=== PATIENT | female | born 1975 | race Caucasian/White ===

== ENCOUNTER 2016-11-14 07:16 | Observation (INO) | payer BC ==
[~2016-11-14] VITALS: Ht 165.1 cm; Wt 73.2 kg
[2016-11-14 07:21] VITALS: BP 131/87; PULSE 82; TEMP 98; O2SAT 98
--- NOTE | 2016-11-14 07:38 | PD ---
HPI Chief Complaint: Staff Nuclear Medicine Technologist Problem/Complaint Time Seen by Provider: 07:36 Travel History International Travel<30 days: No Contact w/Intl Traveler<30days: No Traveled to known affect area: No History of Present Illness HPI Patient is a 40-year-old female who arrives as a transfer from [facility]. The practitioners there Ulises GRAVES and Milotn Ha MD and transfer this patient for Dr. Jaycee Owusu. According to documentation the providers at [facility] had concerns of the patient was having intermittent torsion had a CAT scan performed there which showed "a large superior medially displaced and mildly edematous right ovary with large right ovarian cystic mass in with a small amount of free fluid in the pelvis. Findings are concerning for the possibility of ovarian torsion secondary to a large hemorrhagic cyst. DIRECTOR DRUG SAFETY consultation is recommended. Consider a follow-up pelvic ultrasound to further evaluate. Normal appendix."-- Dr Shemar Graham Currently the patient feels well she denies any abdominal pain. She states it was initially in the right lower quadrant and quite severe in nature. The patient is followed by Dr. Owusu who accepted the patient for transfer. Patient denies chest pain shortness of breath vaginal bleeding vaginal discharge lost fluid. Patient's pain apparently started approximate 12 hours ago and was intermittent in nature. Now currently resolved. PFSH Past Medical History Influenza Vaccination: No ?: Not Social History Alcohol Use: Yes (SOCIALLY) Tobacco Use: No Substance Use: No Allergies-Medications (Allergen,Severity, Reaction): Coded Allergies: No Known Allergies (Unverified , 11/14/16) Reported Meds & Prescriptions Reported Meds & Active Scripts Active Reported Aleve (Naproxen Sodium) 220 Mg Tab 440 Mg PO BID PRN Review of Systems Except as stated in HPI: all other systems reviewed are Neg Physical Exam Narrative GENERAL: Well-developed well-nourished in no apparent distress SKIN: Focused skin assessment warm/dry. HEAD: Atraumatic. Normocephalic. EYES: Pupils equal and round. No scleral icterus. No injection or drainage. ENT: No nasal bleeding or discharge. Mucous membranes pink and moist. NECK: Trachea midline. No JVD. CARDIOVASCULAR: Regular rate and rhythm. No murmur appreciated. RESPIRATORY: No accessory muscle use. Clear to auscultation. Breath sounds equal bilaterally. GASTROINTESTINAL: Abdomen soft, non-tender, nondistended. Hepatic and splenic margins not palpable. MUSCULOSKELETAL: No obvious deformities. No clubbing. No cyanosis. No edema. NEUROLOGICAL: Awake and alert. No obvious cranial nerve deficits. Motor grossly within normal limits. Normal speech. PSYCHIATRIC: Appropriate mood and affect; insight and judgment normal. Data Data Last Documented VS Vital Signs Date Time Temp Pulse Resp B/P Pulse Ox O2 Delivery O2 Flow Rate FiO2 11/14/16 07:21 98.0 82 131/87 98 Orders Basic Metabolic Panel (Bmp) (11/14/16 07:37) Complete Blood Count With Diff (11/14/16 07:37) Iv Access Insert/Monitor (11/14/16 07:37) Ecg Monitoring (11/14/16 07:37) Oximetry (11/14/16 07:37) Type And Screen (11/14/16 07:37) Act Partial Throm Time (Ptt) (11/14/16 07:37) Prothrombin Time / Inr (Pt) (11/14/16 07:37) NPO (11/14/16 07:37) Admit Order (Ed Use Only) (11/14/16 ) Labs Laboratory Tests Test 11/14/16 07:35 White Blood Count 7.1 TH/MM3 Red Blood Count 4.56 MIL/MM3 Hemoglobin 12.8 GM/DL Hematocrit 37.6 % Mean Corpuscular Volume 82.5 FL Mean Corpuscular Hemoglobin 28.1 PG Mean Corpuscular Hemoglobin 34.1 % Concent Red Cell Distribution Width 14.2 % Platelet Count 188 TH/MM3 Mean Platelet Volume 8.9 FL Neutrophils (%) (Auto) 64.5 % Lymphocytes (%) (Auto) 25.8 % Monocytes (%) (Auto) 7.9 % Eosinophils (%) (Auto) 0.8 % Basophils (%) (Auto) 1.0 % Neutrophils # (Auto) 4.6 TH/MM3 Lymphocytes # (Auto) 1.8 TH/MM3 Monocytes # (Auto) 0.6 TH/MM3 Eosinophils # (Auto) 0.1 TH/MM3 Basophils # (Auto) 0.1 TH/MM3 CBC Comment DIFF FINAL Differential Comment Prothrombin Time 10.8 SEC Prothromb Time International 1.0 RATIO Ratio Activated Partial 26.6 SEC Thromboplast Time Sodium Level 141 MEQ/L Potassium Level 3.9 MEQ/L Chloride Level 109 MEQ/L Carbon Dioxide Level 25.0 MEQ/L Anion Gap 7 MEQ/L Blood Urea Nitrogen 7 MG/DL Creatinine 0.72 MG/DL Estimat Glomerular Filtration 90 ML/MIN Rate Random Glucose 97 MG/DL Calcium Level 8.1 MG/DL Blood Type O POSITIVE Antibody Screen NEGATIVE Blood Bank Comment MDM Medical Decision Making Medical Screen Exam Complete: Yes Emergency Medical Condition: Yes Interpretation(s) EKG shows normal sinus rhythm normal axis and normal R-wave progression. No concerning ST-T changes. Intervals within normal limits. This normal EKG. Differential Diagnosis Intermittent ovarian torsion, ovarian cyst, ovarian mass, appendicitis is been excluded by CT at outside facility. Narrative Course Patient arrives [facility] transport. She is comfortable currently. Review the records from the outside facility and discussed with Dr. Owusu, she is in route to check on the patient. She may take to the operating room later this morning. Preoperative labs have been ordered. We discussed the possibility of an ultrasound and she will differential after her physical exam at this time. The patient remained stable in the emergency department. After exam by Dr. Owusu, plan is for OR this afternoon. Patient to be admitted to her service. Diagnosis Primary Impression: RLQ abdominal pain Admitting Information Admitting Physician Requests: Admit Condition: Stable Cas Soares MD November 14, 2016 07:38
[2016-11-14 07:52] LABS: AUTOMATED NEUTROPHIL # 4.6 TH/MM3 (1.8-7.7); BASOPHIL # 0.1 TH/MM3 (0-0.2); EOSINOPHIL # 0.1 TH/MM3 (0-0.4); EOSINOPHIL % 0.8 % (0.0-4.0); HEMATOCRIT 37.6 % (35.0-46.0); HEMO FLAGS DIFF FINAL; LYMPH % 25.8 % (9.0-44.0); LYMPHOCYTE # 1.8 TH/MM3 (1.0-4.8); MEAN CELL VOLUME 82.5 FL (80.0-100.0); MEAN CORPUSCULAR HEMOGLOBIN 28.1 PG (27.0-34.0); MEAN CORPUSCULAR HGB CONC 34.1 % (32.0-36.0); MONO % 7.9 % (0.0-8.0); NEUT % 64.5 % (16.0-70.0); PLATELET COUNT 188 TH/MM3 (150-450); RED BLOOD COUNT 4.56 MIL/MM3 (4.00-5.30); RED CELL DISTRIBUTION WIDTH 14.2 % (11.6-17.2); WHITE BLOOD COUNT 7.1 TH/MM3 (4.0-11.0)
[2016-11-14 08:01] LABS: APTT (PATIENT) 26.6 SEC (24.3-30.1); PROTHROMBIN TIME - PATIENT 10.8 SEC (9.8-11.6)
[2016-11-14 08:18] LABS: POTASSIUM 3.9 MEQ/L (3.5-5.1)
--- NOTE | 2016-11-14 09:13 | HHI.HP ---
HPI Chief Complaint intermittent and severe RLQT transfer from [facility] with imaging that is consistent with 10cm torsion of right ovary (intermittent) stable at moment Date Seen: November 14, 2016 Time Seen: 09:09 Travel History International Travel<30 Days: No Contact w/Intl Traveler<30Days: No Known Affected Area: No History of Present Illness HPI 40 yo mwf P2 with regular short menses and IUD in place to [facility] last night with 10/10 RLQT. Imaging consistent with torsion. Pain resolved spontaneously prior to transfer likely due to intermittent relaxation of torsion. Currently mildly painful. No fever, chills. Para: 2 History Past Medical History Medical History: Denies Significant Hx Obstetric History Obstetric History 2SVDs Family History Family History: Negative Social History Alcohol Use: No Tobacco Use: No Substance Abuse: No Allergies-Medications (Allergen,Severity, Reaction): Coded Allergies: No Known Allergies (Unverified , 11/14/16) Review of Systems Gastrointestinal: Nausea, Abdominal Pain Genitourinary: Pelvic Pain Physical Exam Vital Signs Date Time Temp Pulse Resp B/P Pulse Ox O2 Delivery O2 Flow Rate FiO2 11/14/16 07:21 98.0 82 131/87 98 Narrative GENERAL: Well-nourished, well-developed patient. SKIN: Warm and dry. HEAD: Normocephalic and atraumatic. EYES: No scleral icterus. No injection or drainage. ENT: No nasal drainage noted. Mucous membranes pink. Airway patent. NECK: Supple, trachea midline. No JVD. CARDIOVASCULAR: Regular rate and rhythm without murmurs, gallops, or rubs. RESPIRATORY: Breath sounds equal bilaterally. No accessory muscle use. BREASTS: Bilateral exam showed no masses , no retractions, no nipple discharge. ABDOMEN/GI: Abdomen soft, EXTREMITIES: No cyanosis or edema. BACK: Nontender without obvious deformity. No CVA tenderness. NEUROLOGICAL: Awake and alert. Motor and sensory grossly within normal limits. Five out of 5 muscle strength in all muscle groups. Normal speech. Data Data Orders Basic Metabolic Panel (Bmp) (11/14/16 07:37) Complete Blood Count With Diff (11/14/16 07:37) Iv Access Insert/Monitor (11/14/16 07:37) Ecg Monitoring (11/14/16 07:37) Oximetry (11/14/16 07:37) Type And Screen (11/14/16 07:37) Act Partial Throm Time (Ptt) (11/14/16 07:37) Prothrombin Time / Inr (Pt) (11/14/16 07:37) NPO (11/14/16 07:37) Admit Order (Ed Use Only) (11/14/16 ) Labs Laboratory Tests Test 11/14/16 07:35 White Blood Count 7.1 Red Blood Count 4.56 Hemoglobin 12.8 Hematocrit 37.6 Mean Corpuscular Volume 82.5 Mean Corpuscular Hemoglobin 28.1 Mean Corpuscular Hemoglobin 34.1 Concent Red Cell Distribution Width 14.2 Platelet Count 188 Mean Platelet Volume 8.9 Neutrophils (%) (Auto) 64.5 Lymphocytes (%) (Auto) 25.8 Monocytes (%) (Auto) 7.9 Eosinophils (%) (Auto) 0.8 Basophils (%) (Auto) 1.0 Neutrophils # (Auto) 4.6 Lymphocytes # (Auto) 1.8 Monocytes # (Auto) 0.6 Eosinophils # (Auto) 0.1 Basophils # (Auto) 0.1 CBC Comment DIFF FINAL Differential Comment Prothrombin Time 10.8 Prothromb Time International 1.0 Ratio Activated Partial 26.6 Thromboplast Time Sodium Level 141 Potassium Level 3.9 Chloride Level 109 Carbon Dioxide Level 25.0 Anion Gap 7 Blood Urea Nitrogen 7 Creatinine 0.72 Estimat Glomerular Filtration 90 Rate Random Glucose 97 Calcium Level 8.1 Blood Type O POSITIVE Antibody Screen NEGATIVE Blood Bank Comment Assessment/Plan Assessment and Plan intermittent torsion of large 10cm right adnexa needs diagnostic scope with possible RSO counseled in detail on surgical schedule Rohini Owusu MD November 14, 2016 09:12
[2016-11-14 10:29] VITALS: BP 114/62; O2SAT 99
[2016-11-14] MEDS ORDERED: LACTATED RINGER'S 1000 ML INJ 1,000 ML IV ONE ×2 (12:29→12:57)
[2016-11-14] MEDS ORDERED: ePHEDrine/NS 25 MG/5 ML SYR IV ONE (12:56)
[2016-11-14] MEDS ORDERED: PROPOFOL 200 MG/20 ML AMP IV ONE (12:56)
[2016-11-14] MEDS ORDERED: ONDANSETRON HCL 4 MG/2 ML VIAL IV PUSH ONE (12:57)
[2016-11-14] MEDS ORDERED: PHENYLEPH/NS 1000 MCG/10 ML SYR IV ONE (12:57)
[2016-11-14] MEDS ORDERED: NEOSTIGMINE 3 MG/3 ML SYR IV ONE (12:57)
[2016-11-14] MEDS ORDERED: NAPR220T95 PO (13:24)
[2016-11-14 13:44] LABS: AUTOMATED NEUTROPHIL # 3.1 TH/MM3 (1.8-7.7); BASOPHIL % 0.8 % (0.0-2.0); EOSINOPHIL # 0.1 TH/MM3 (0-0.4); EOSINOPHIL % 1.1 % (0.0-4.0); HEMATOCRIT 34.7 % (35.0-46.0); HEMO FLAGS DIFF FINAL; LYMPH % 28.1 % (9.0-44.0); LYMPHOCYTE # 1.3 TH/MM3 (1.0-4.8); MEAN CELL VOLUME 83.5 FL (80.0-100.0); MEAN CORPUSCULAR HEMOGLOBIN 26.8 PG (27.0-34.0); MEAN CORPUSCULAR HGB CONC 32.1 % (32.0-36.0); MONO % 5.2 % (0.0-8.0); NEUT % 64.8 % (16.0-70.0); PLATELET COUNT 168 TH/MM3 (150-450); RED BLOOD COUNT 4.15 MIL/MM3 (4.00-5.30); RED CELL DISTRIBUTION WIDTH 14.8 % (11.6-17.2); WHITE BLOOD COUNT 4.8 TH/MM3 (4.0-11.0)
[2016-11-14] MEDS ORDERED: CITRIC ACID-SODIUM CITRATE LIQ 30 ML UDC PO SCH (14:00)
[2016-11-14 14:12] VITALS: BP 120/68
[2016-11-14 14:12] LABS: BLOOD, URINE NEG (NEG); COMMENT (UR) CULT NOT INDICATED; CULTURE IF INDICATED CULT NOT INDICATED; GLUCOSE,URINE NEG (NEG); KETONE, URINE NEG (NEG); NITRITE,URINE NEG (NEG); SQUAMOUS EPITHELIAL CELL URINE 2 /hpf (0-5); URINE COLOR LIGHT-YELLOW (YELLW/STRAW)
[2016-11-14] MEDS ORDERED: MIDAZOLAM HCL 2 MG/2 ML VIAL ONE (14:36)
[2016-11-14] MEDS ORDERED: fentaNYL CITRATE 250 MCG/5 ML AMP ONE (14:36)
[2016-11-14] MEDS ORDERED: DICLOFENAC SODIUM 37.5 MG/ML VIAL IV PUSH ONE (14:36)
[2016-11-14] MEDS ORDERED: BUPIVACAINE/EPINEPHRINE 0.5% PF 10 ML VIAL ONE (14:36)
[2016-11-14] MEDS ORDERED: ACETAMINOPHEN 1000 MG/100 ML VIAL IV ONE (14:36)
[2016-11-14] MEDS ORDERED: BUPIVACAINE/EPINEPHRINE 0.5% PF 30 ML VIAL ONE (14:37)
--- NOTE | 2016-11-14 16:14 | PD.OP ---
Operative Report Date of Surgery: November 14, 2016 Preoperative Diagnosis: right ovarian torsion Postoperative Diagnosis: same Procedure: Dx Lscope with RSO Anesthesia: MARLA Surgeon: Rohini Owusu Newscast Producer(s): delta MS3 Operation and Findings: Rohini Mccarty MD November 14, 2016 16:14
[2016-11-14] MEDS ORDERED: ZOLPIDEM TARTRATE 5 MG TAB PO PRN (16:15)
[2016-11-14] MEDS ORDERED: ONDANSETRON HCL 4 MG/2 ML VIAL IVP PRN (16:15)
[2016-11-14] MEDS ORDERED: oxyCODONE/ACETAMINOPHEN 5 MG/325 MG TAB PO PRN ×2 (16:15)
[2016-11-14] MEDS ORDERED: SODIUM CHLORIDE 0.9% FLUSH 10 ML FLUSH IV FLUSH PRN (16:15)
[2016-11-14] MEDS ORDERED: diphenhydrAMINE HCL 25 MG CAP PO PRN (16:15)
[2016-11-14] MEDS: DOCUSATE SODIUM 100 MG CAP PO SCH (16:15)
[2016-11-14] MEDS ORDERED: IBUPROFEN 600 MG TAB PO PRN (16:15)
[2016-11-14] MEDS ORDERED: LORazepam 0.5 MG TAB PO PRN (16:15)
[2016-11-14] MEDS ORDERED: HYDROmorphone HCL PF 1 MG/ML VIAL IVP PRN (16:15)
[2016-11-14] MEDS ORDERED: DO NOT ADM ANY ANTICOAGULANT DRUGS PRN (17:00)
[2016-11-14 17:30] VITALS: BP 120/72; PULSE 67; RESP 18; TEMP 97.8; O2SAT 100
[2016-11-14] MEDS: LACTATED RINGER'S 1000 ML INJ 1,000 ML IV SCH ×2 (18:00→19:00)
[2016-11-14 20:00] VITALS: BP 118/70; PULSE 74; RESP 17; TEMP 98.6; O2SAT 99
[2016-11-14] MEDS: SODIUM CHLORIDE 0.9% FLUSH 10 ML FLUSH IV FLUSH SCH (21:00)
--- NOTE | 2016-11-14 21:59 | EKG ---
Date Performed: 11/14/2016 Time Performed: 09:45:00 PTAGE: 40 years EKG: Sinus rhythm LOW QRS VOLTAGE IN PRECORDIAL LEADS BORDERLINE ECG NO PREVIOUS TRACING DOCTOR: Danyelle Lopez Interpretating Date/Time 11/14/2016 21:52:09
[2016-11-15] VITALS: BP 118/71; PULSE 78; RESP 16; TEMP 96.6; O2SAT 98
[2016-11-15] MEDS: LACTATED RINGER'S 1000 ML INJ 1,000 ML IV SCH ×4 (00:10→08:59)
[2016-11-15 04:00] VITALS: BP 102/68; PULSE 72; RESP 16; TEMP 97.9; O2SAT 98
[2016-11-15] MEDS: DOCUSATE SODIUM 100 MG CAP PO SCH (04:57)
[2016-11-15 08:00] VITALS: BP 120/75; PULSE 70; RESP 16; O2SAT 97
--- NOTE | 2016-11-15 08:26 | HHI.PR ---
Subjective Remarks Doing well, pain is well controlled, eating well. has voided after cathter removal ambulating some right shoulder pain Objective Vital Signs Vital Signs Date Time Temp Pulse Resp B/P Pulse Ox O2 Delivery O2 Flow Rate FiO2 11/15/16 04:00 97.9 72 16 102/68 98 11/15/16 00:00 96.6 78 16 118/71 98 11/14/16 20:00 98.6 74 17 118/70 99 11/14/16 17:30 97.8 67 18 120/72 100 11/14/16 17:00 97.5 65 19 109/65 99 Room Air 11/14/16 16:45 62 13 109/67 99 Room Air 11/14/16 16:30 66 11 112/68 100 Room Air 11/14/16 16:19 98.4 89 10 127/79 98 Nasal Cannula 2 11/14/16 14:12 120/68 98 11/14/16 10:29 114/62 99 Room Air 11/14/16 10:29 114/62 I/O 11/14/16 11/14/16 11/14/16 11/15/16 11/15/16 11/15/16 07:00 15:00 23:00 07:00 15:00 23:00 Intake Total 1320 ml 240 ml 1549 ml Output Total 1310 ml 650 ml Balance 10 ml -410 ml 1549 ml Intake Oral 720 ml 240 ml IV Total 1549 ml Other 600 ml Output Urine Total 1300 ml 650 ml Estimated Blood Loss 10 ml Result Diagram: 11/14/16 1336 11/14/16 0735 Objective Remarks Chest is clear, regular rate and rhythm. Abdomen is soft and non-distended. Incisions clean and dry. Ext no CCE. A/P Assessment and Plan Post Op Day 1 Doing well Home today and return to office wednesday Rohini Owusu MD November 15, 2016 08:26
[2016-11-15] MEDS ORDERED: OXYC1TAB63 PO (08:28)
--- NOTE | 2016-11-15 08:29 | HHI.DCPOC ---
Discharge Care Plan Report Symptoms to Your Doctor -Temperate above 100.5 degrees -Redness, of incision or excessive or foul smelling drainage -Unusual pain or calf pain -Increased vaginal bleeding -Painful or difficulty urinating -Feelings of extreme sadness or anxiety after 2 weeks Goals to Promote Your Health * To prevent worsening of your condition and complications * To maintain your health at the optimal level Directions to Meet Your Goals Take your medications as prescribed Follow your dietary instruction Follow activity as directed Ensure plenty of rest for recovery Drink fluids for hydration Keep your appointments as scheduled Take your immunizations and boosters as scheduled If your symptoms worsen call your PCP, if no PCP go to Urgent Care Center or Emergency Room Smoking is Dangerous to Your Health. Avoid second hand smoke Call the 24-hour crisis hotline for domestic abuse at Rohini Owusu MD November 15, 2016 08:29
[2016-11-15] MEDS: SODIUM CHLORIDE 0.9% FLUSH 10 ML FLUSH IV FLUSH SCH (09:00)
--- NOTE | 2016-11-15 10:35 | MP ---
cc: BOOGIE BARRERA DATE OF SURGERY: 11/14/16 DATE OF : 1975 PREOPERATIVE DIAGNOSIS Large right adnexal mass and intermittent severe pain consistent with a right ovarian torsion. POSTOPERATIVE DIAGNOSIS 1. Large right adnexal mass and intermittent severe pain consistent with a right ovarian torsion. 2. 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 PROCEDURE: Diagnostic laparoscopy and laparoscopic right salpingo-oophorectomy. ANESTHESIA General. SURGEON: Ariana Barrera MD. FRINGE WEAVER: Maria Isabel Nguyen, third year medical student. FINDINGS: The patient had been transferred from [facility] where she had presented with an acute abdomen that then appeared to improve with pain medicine. A CAT scan revealed a 10 cm complex mass suggestive of a right ovarian torsion. She was transferred to our emergency room where labs were repeated and clinical exam did suggest a large cyst on the right side with moderate tenderness. She was placed on the operative schedule and findings were about a 20 cm right adnexal mass that is an infarcted ovary with a large follicular cyst filled with straw colored fluid. This ovary and tube were from their attachments and drained of fluid, placed in an EndoCatch, removed and sent to pathology. The uterus, left adnexa, gallbladder and appendix all were unremarkable. ESTIMATED BLOOD LOSS: Minimal. Sponge, instrument, needle count correct and she tolerated the procedure well and the recovery in stable condition. DETAILS OF PROCEDURE: The patient was identified as Astrid Dyer. She had the permit in the emergency room. This was reviewed up in holding. She was taken to the operating room, placed under general endotracheal anesthesia in the dorsolithotomy position with sequentials on and a Jaimes catheter was placed. She was prepped and draped. A time out was performed. She had received one gram of Ancef en route. Examination under anesthesia did confirm a very significant fullness in the right adnexa and cul-de-sac. Upon entering the peritoneal cavity the mass was encountered which had grown considerably since her initial imaging study. The liver edge, gallbladder, appendix were all normal. It was apparent that the right adnexa had torsed probably due to this cyst and rapidly was enlarging. The remainder of the pelvic anatomy was normal. After placement of acorn tenaculum on the cervix, attention was directed towards the abdomen where a 5 millimeter incision was made in the umbilicus. This had been infiltrated with Marcaine. Then the trocar and sleeve were placed. Two liters of CO2 were instilled and then the systematic evaluation of the abdominal and pelvic contents was performed. An additional 5 millimeter incision was made in the right lower quadrant and a 12 millimeter incision was made in the left lower quadrant. Trocars and sleeve were placed. The adnexa was then elevated out of the cavity and she was in Trendelenburg to remove bowel from the site, and with care to avoid other structures, the infundibulopelvic ligament was transected and then the tubo-ovarian ligament close to the uterus was transected, and then the adnexal mass was placed in the cul-de-sac. At this point the harmonic scalpel was used to make a hole in the adnexal mass with straw colored fluid coming and this was then drained of about 450 to 500 cc of clear fluid. Then the collapsed cyst and adnexa was placed in an EndoCatch and removed, through the left lower quadrant port. Systematic evaluation showed no bleeding. No other iatrogenic or intrinsic pathology. The pneumoperitoneum was released under direct vision. The fascia was closed in the left lower quadrant. The skin was closed with Monocryl. The vaginal instrumentation was removed. She was placed in dorsal supine position and taken to the Recovery Room in stable condition. MD REGINA Krause/ALONA /8:22 AM /10:20 AM
== END 2016-11-15 10:41 | disposition home or self-care (01) ==
LOC: NEPC 07:16 → NEDA 09:00 → INTOOBSV 09:00 → HOCA 17:47
PROVIDERS: ADMIT Obstetrics & Gynecology; ATTEND Obstetrics & Gynecology
DX: N83.511 Torsion of right ovary and ovarian pedicle (principal); D27.0 Benign neoplasm of right ovary; N83.01 Follicular cyst of right ovary; N83.8 Other noninflammatory disorders of ovary, fallopian tube and broad ligament; R10.32 Left lower quadrant pain; R10.2 Pelvic and perineal pain; R11.0 Nausea; Z97.5 Presence of (intrauterine) contraceptive device; Z01.810 Encounter for preprocedural cardiovascular examination
CPT/HCPCS: 00840; 58661; 80048; 81001; 85025; 85610; 85730; 86850; 86900; 86901; 88307; 93005; 99285; G0378; J0131; J0690; J1130; J2250; J2370; J2405; J2710; J3010; J7120; 88305